=== PATIENT | male | born 1975 | race Hispanic/Latino ===

== ENCOUNTER 2021-10-09 07:37 | Emergency (ER) | payer MEDICARE ==
[2021-10-09 07:51] VITALS: BP 124/90
[2021-10-09] MEDS ORDERED: KETOROLAC 10 MG TAB PO ONE (08:04)
[2021-10-09] MEDS ORDERED: clonazePAM 0.5 MG TAB PO ONE (08:04)
[2021-10-09] MEDS ORDERED: ONDANSETRON 4 MG ODT TAB PO ONE (08:04)
--- NOTE | 2021-10-09 08:30 | Emergency Department Report ---
ED Abdominal Pain HPI - General Chief Complaint: Abdominal Pain Stated Complaint: ABDOMINAL PAIN Time Seen by Provider: 10/09/21 07:51 Source: patient Mode of arrival: Ambulatory Limitations: No Limitations - History of Present Illness Initial Comments: 45-year-old white male with a past medical history of ulcerative colitis, hypertension, bipolar disorder, and anxiety presents to the emergency department for evaluation of 1 week history of bilateral lower quadrant pain. He states that he has also had nausea, vomiting, diarrhea, fever, and dysuria. He states that he has not been taking his ulcerative colitis medications in over a week because he ran out. He also request refill of hypertension and bipolar medication stating that he is new to the area and has not been able to find a primary care provider yet. He denies penile discharge or testicular pain. MD Complaint: abdominal pain -: Gradual, week(s) (1) Location: LLQ, RLQ Radiation: none Migration to: no migration Severity scale (0 -10): 9 Quality: aching Consistency: constant Associated Symptoms: nausea, vomiting, diarrhea, fever, dysuria. denies: chills, hematemesis, hematochezia, melena, hematuria, anorexia, syncope - Related Data Previous Rx's Medication Instructions Recorded Last Taken Type Dicyclomine [Bentyl] 10 mg PO QID #120 capsule 10/09/21 Unknown Rx Sucralfate [Carafate] 1 gm PO ACHS #120 tablet 10/09/21 Unknown Rx clonazePAM [Klonopin] 1 mg PO TID #90 tab 10/09/21 Unknown Rx lisinopriL [Lisinopril] 20 mg PO DAILY #30 tab 10/09/21 Unknown Rx sulfaSALAzine [Sulfasalazine] 500 mg PO QID #120 tab 10/09/21 Unknown Rx Allergies Allergy/AdvReac Type Severity Reaction Status Date / Time No Known Allergies Allergy Verified 10/09/21 07:56 ED Review of Systems ROS: Stated complaint: ABDOMINAL PAIN Other details as noted in HPI Comment: All other systems reviewed and negative Constitutional: fever. denies: chills, diaphoresis, malaise, weakness Eyes: denies: eye pain ENT: denies: ear pain Respiratory: denies: cough, shortness of breath, SOB with exertion, SOB at rest Cardiovascular: denies: chest pain, palpitations, dyspnea on exertion, orthopnea, edema, syncope, paroxysmal nocturnal dyspnea Endocrine: no symptoms reported Gastrointestinal: abdominal pain, nausea, vomiting, diarrhea. denies: h ematemesis, melena, hematochezia Genitourinary: dysuria. denies: urgency, frequency, discharge, testicular pain Musculoskeletal: denies: back pain Neurological: denies: headache, weakness, numbness, paresthesias, abnormal gait Psychiatric: denies: anxiety, auditory hallucinations, visual hallucinations, homicidal thoughts, suicidal thoughts Hematological/Lymphatic: denies: easy bleeding, easy bruising ED Past Medical Hx - Medications Home Medications: Home Medications Medication Instructions Recorded Confirmed Last Taken Type Dicyclomine [Bentyl] 10 mg PO QID #120 capsule 10/09/21 Unknown Rx Sucralfate [Carafate] 1 gm PO ACHS #120 tablet 10/09/21 Unknown Rx clonazePAM [Klonopin] 1 mg PO TID #90 tab 10/09/21 Unknown Rx lisinopriL [Lisinopril] 20 mg PO DAILY #30 tab 10/09/21 Unknown Rx sulfaSALAzine [Sulfasalazine] 500 mg PO QID #120 tab 10/09/21 Unknown Rx ED Physical Exam - General Limitations: No Limitations General appearance: alert, in no apparent distress - Head Head exam: Present: atraumatic, normocephalic - Eye Eye exam: Present: normal appearance. Absent: conjunctival injection - Neck Neck exam: Present: normal inspection, full ROM. Absent: tenderness, lymphadenopathy - Respiratory Respiratory exam: Present: normal lung sounds bilaterally. Absent: respiratory distress, wheezes, rales, rhonchi, stridor, chest wall tenderness, accessory muscle use - Cardiovascular Cardiovascular Exam: Present: tachycardia, normal heart sounds - GI/Abdominal GI/Abdominal exam: Present: soft, distended, tenderness (Bilateral lower quadrant), normal bowel sounds. Absent: guarding, rebound, rigid - Extremities Exam Extremities exam: Present: normal inspection - Back Exam Back exam: Present: normal inspection, full ROM. Absent: tenderness, CVA tenderness (R), CVA tenderness (L) - Neurological Exam Neurological exam: Present: alert, oriented X3 - Psychiatric Psychiatric exam: Present: normal affect, normal mood - Skin Skin exam: Present: warm, dry, intact, normal color ED Course Vital Signs 10/09/21 07:50 Temperature 97.9 F Pulse Rate 101 H Respiratory 16 Rate Blood Pressure 124/90 [Left] O2 Sat by Pulse 96 Oximetry ED Medical Decision Making - Lab Data Result diagrams: 10/09/21 08:13 10/09/21 08:13 - Radiology Data CT abdomen and pelvis without contrast IMPRESSION: 1. Mild to moderate inflammatory changes of the transverse colon suggestive of colitis. 2. Numerous enlarged mesenteric lymph nodes. - Medical Decision Making 45-year-old white male with a past medical history of ulcerative colitis, hypertension, bipolar disorder, and anxiety presents to the emergency department for evaluation of 1 week history of bilateral lower quadrant pain. He states that he has also had nausea, vomiting, diarrhea, fever, and dysuria. He states that he has not been taking his ulcerative colitis medications in over a week because he ran out. He also request refill of hypertension and bipolar medication stating that he is new to the area and has not been able to find a primary care provider yet. He denies penile discharge or testicular pain. No gross abnormalities noted on labs and UA. CT of the abdomen pelvis noted to show colitis with some lymph node enlargement. Patient without signs of infection. Pain improved after medication. Patient will be treated with restart of home usage medications as prescribed by his primary care provider. He was also given a refill of hypertension and anxiety medications per his current prescription. He was advised to take medications as prescribed and follow-up with primary care provider or specialist for further evaluation and management. Plan of care was reviewed with patient he verbalized understanding of and agreement with. Critical care attestation.: If time is entered above; I have spent that time in minutes in the direct care of this critically ill patient, excluding procedure time. ED Disposition Clinical Impression: Colitis, Medication refill Abdominal pain Qualifiers: Abdominal location: lower abdomen, unspecified Qualified Code(s): R10.30 - Lower abdominal pain, unspecified Disposition: 01 HOME / SELF CARE / HOMELESS Is pt being admited?: No Does the pt Need Aspirin: No Condition: Stable Instructions: Ulcerative Colitis, Adult Additional Instructions: Take medications as prescribed. Follow-up with primary care provider. Prescriptions: Dicyclomine [Bentyl] 10 mg PO QID #120 capsule Sucralfate [Carafate] 1 gm PO ACHS #120 tablet clonazePAM [Klonopin] 1 mg PO TID #90 tab lisinopriL [Lisinopril] 20 mg PO DAILY #30 tab sulfaSALAzine [Sulfasalazine] 500 mg PO QID #120 tab Referrals: [facility] [Outside] - 3-5 Days LEIDY ZENDEJAS MD [Referring] - 3-5 Days HEATHER DORAN MD [Staff Physician] - 3-5 Days JAMIR SAEED MD [Staff Physician] - 3-5 Days Time of Disposition: 09:33
--- NOTE | 2021-10-09 08:57 | Cat Scan Report ---
CT ABDOMEN AND PELVIS WITHOUT CONTRAST, 10/09/2021 INDICATION: Abdominal pain. History of ulcerative colitis. TECHNICAL: Multiple axial CT images of the abdomen and pelvis were acquired without intravenous contr ast. Sagittal and coronal reformats were obtained. All CTs at this facility utilize dose reduction techniques including automated exposure control, iterative reconstruction and weight based dosing whe n appropriate to reduce patient radiation dose to as low as reasonable achievable. COMPARISON: No relevant prior studies are available for comparison. FINDINGS: LUNG BASES: Limited imaging of the bilateral lung bases demonstrates no acute abnormality. ABDOMEN: Within the limitations of today's noncontrast technique, the liver, gallbladder, spleen, sto mach, pancreas, bilateral adrenal glands and bilateral kidneys show no evidence of acute abnormality. There is a 3 mm nonobstructing stone is incidentally noted within the left kidney. The abdominal aor ta is normal in caliber with minimal scattered atherosclerotic calcification. There is mild to moderate inflammatory change involving the transverse colon. There is no free fluid or evidence of bowel obstruction. There are numerous enlarged mesenteric lymph nodes throughout the a bdomen. The appendix is visualized and appears normal. PELVIS: No free fluid is seen within the pelvis. The urinary bladder is decompressed but appears sangeetha sly normal. BONES AND SOFT TISSUES: No significant abnormality. IMPRESSION: 1. Mild to moderate inflammatory changes of the transverse colon suggestive of colitis. 2. Numerous enlarged mesenteric lymph nodes. Signer Name: Ysabel Monroy MD Signed: 10/09/2021 8:53 AM Workstation Name: [id number]
[2021-10-09 08:59] LABS: Bilirubin,Urine NEG (Negative); Blood,Urine NEG (Negative); Color,Urine Straw (Yellow); Protein,Urine <15 mg/dL mg/dL (Negative); RBC,Urine < 1.0 /HPF (0.0-6.0); Urobilinogen,Urine < 2.0 mg/dL (<2.0)
[2021-10-09 09:01] LABS: Hematocrit 44.2 % (35.5-45.6); Hemoglobin 15.5 gm/dl (11.8-15.2); Mean Corpuscular HGB Conc 35 % (32-34); Mean Corpuscular Volume 91 fl (84-94); Platelet Count 343 K/mm3 (140-440); Red Blood Count 4.83 M/mm3 (3.65-5.03); Red Cell Distribution Width 12.5 % (13.2-15.2)
[2021-10-09 09:26] LABS: Alanine Aminotransferase 9 units/L (7-56); Albumin 3.9 g/dL (3.9-5); Blood Urea Nitrogen 5 mg/dL (9-20); Calcium 9.2 mg/dL (8.4-10.2); Hemolysis Index 9
[2021-10-09 09:28] LABS: BUN/Creatinine Ratio 7
== END 2021-10-09 09:50 | disposition home or self-care (01) ==
LOC: ED 07:37
DX: K52.9 Noninfective gastroenteritis and colitis, unspecified (principal); R10.30 Lower abdominal pain, unspecified; Z76.0 Encounter for issue of repeat prescription
CPT/HCPCS: 36415; 74176; 80053; 81001; 83690; 85027; 99284; J3490; Q0162

== ENCOUNTER 2022-03-15 12:14 | Emergency (ER) | payer MEDICARE ==
[2022-03-15] MEDS ORDERED: ZIPRASIDONE MESYLATE 20 MG VIAL IM ONE (12:43)
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
[2022-03-15 13:04] LABS: Basophils # (Auto) 0.1 K/mm3 (0.0-0.1); Basophils % (Auto) 0.6 % (0.0-1.8); Eosinophils # (Auto) 0.1 K/mm3 (0.0-0.4); Eosinophils % (Auto) 1.1 % (0.0-4.3); Hematocrit 46.4 % (35.5-45.6); Hemoglobin 16.2 gm/dl (11.8-15.2); Lymphocytes % (Auto) 23.9 % (13.4-35.0); Mean Corpuscular HGB Conc 35 % (32-34); Mean Corpuscular Volume 93 fl (84-94); Monocytes # (Auto) 0.6 K/mm3 (0.0-0.8); Monocytes % (Auto) 6.5 % (0.0-7.3); Platelet Count 320 K/mm3 (140-440); Red Blood Count 4.99 M/mm3 (3.65-5.03); Red Cell Distribution Width 15.2 % (13.2-15.2)
[2022-03-15 13:23] LABS: BUN/Creatinine Ratio 9; Blood Urea Nitrogen 8 mg/dL (9-20); Calcium 8.9 mg/dL (8.4-10.2); Hemolysis Index 7
[2022-03-15 14:52] LABS: Amphetamine Screen,Urine Negative; Benzodiazepines Screen,Urine Negative; Cannabinoid Screen,Urine Negative; Cocaine Screen,Urine Negative; Methadone Screen,Urine Negative; Opiate Screen,Urine Negative
[2022-03-15 15:33] LABS: Bilirubin,Urine Negative (Negative); Color,Urine Yellow (Yellow)
[2022-03-15 15:34] LABS: Blood,Urine 1+ (Negative); Protein,Urine <15 mg/dL mg/dL (Negative)
[2022-03-15 20:25] VITALS: BP 110/77
== END 2022-03-16 05:15 | disposition still patient (30) ==
LOC: ED 12:14
DX: R45.851 Suicidal ideations (principal); F32.A Depression, unspecified
CPT/HCPCS: 36415; 80048; 80307; 81001; 85025; 87086; 96372; 99285; J3486; 80320; G0480